=== PATIENT | female | born 1995 | race Caucasian/White ===

== ENCOUNTER 2018-12-31 14:03 | Emergency (ER) | payer OTHER ==
[2018-12-31 14:23] VITALS: BP 122/67
[2018-12-31] MEDS ORDERED: LIDOCAINE 5% (700 MG) TRANSDERMAL ADH..PATCH TP ONE (14:42)
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
== END 2018-12-31 15:04 | disposition home or self-care (01) ==
LOC: ER 14:03
DX: M54.2 Cervicalgia (principal); M54.5 Low back pain; V87.7XXA Person injured in collision between other specified motor vehicles (traffic), initial encounter; F17.200 Nicotine dependence, unspecified, uncomplicated
CPT/HCPCS: 99283